=== PATIENT | female | born 1965 ===

== ENCOUNTER 2020-12-12 05:15 | Inpatient (IN) | payer OTHER ==
[~2020-12-12 05:15] MED LIST: FORTAMET1000 MG PO; IBERSARTAN PO; TOPROL XL50 M1 PO
[2020-12-12] MEDS ORDERED: ATORVASTATIN CA20 MG (11:55)
[2020-12-12] MEDS ORDERED: GABAPENTIN300 M2 (11:55)
[2020-12-12] MEDS ORDERED: AVAPRO75 MG (11:56)
[2020-12-12] MEDS ORDERED: FENOFIBRATE145 MG (11:56)
[2020-12-15] MEDS ORDERED: PERCOCET 5-3251 EACH PO (14:11)
== END 2020-12-15 14:30 | disposition home or self-care (01) | DRG 333 ==
LOC: CIR.AMB 05:15 → SURH 11:17 → O/R 11:17 → SURH 13:03
PROVIDERS: Neurological Surgery; ADMIT Surgery; ATTEND Surgery
PROC: 0QBS0ZZ Excision of Coccyx, Open Approach (ICD-10-PCS; 2020-12-12)
PROC: 0DBP0ZZ Excision of Rectum, Open Approach (ICD-10-PCS; principal; 2020-12-12 10:45)
PROC: 0QB10ZZ Excision of Sacrum, Open Approach (ICD-10-PCS; 2020-12-12 10:45)
DX: C20 Malignant neoplasm of rectum (principal); C79.52 Secondary malignant neoplasm of bone marrow; C79.51 Secondary malignant neoplasm of bone; D62 Acute posthemorrhagic anemia; E11.9 Type 2 diabetes mellitus without complications; I11.9 Hypertensive heart disease without heart failure